=== PATIENT | male | born 1935 | race Asian ===

== ENCOUNTER 2018-05-25 18:24 | Emergency (ER) | payer OTHER ==
[~2018-05-25] VITALS: Ht 177.8 cm; Wt 92.5 kg
[2018-05-25 19:22] LABS: PLATELET COUNT 160 K/uL (142-355)
[2018-05-25 19:24] LABS: POTASSIUM 3.7 mmol/L (3.6-5.2)
[2018-05-25 21:10] VITALS: BP 135/71; TEMP 97.6
[2018-05-26] MEDS ORDERED: METO-837 PO (02:11)
[2018-05-26] MEDS ORDERED: MIRTAZAPINE7.5 MG PO (02:13)
[2018-05-26] MEDS ORDERED: TAMSULOSIN HYD0.4 MG PO (02:16)
[2018-05-26] MEDS ORDERED: BUDESONIDE0.25 MG/2 INH (02:18)
[2018-05-26] MEDS ORDERED: TRAMADOL HYDROC50 MG PO (02:21)
[2018-05-26] MEDS ORDERED: AMIODARONE HYD200 MG PO (02:32)
[2018-05-26] MEDS ORDERED: AMLODIPINE BESYLATE PO (02:34)
[2018-05-26] MEDS ORDERED: ASPIRIN 81 LOW81 MG PO (02:36)
[2018-05-26] MEDS ORDERED: FURO40TA93 PO (02:38)
[2018-05-26] MEDS ORDERED: MONTELUKAST SOD10 MG PO (02:40)
[2018-05-26] MEDS ORDERED: POTASSIUM CHLO20 ME1 PO (02:43)
[2018-05-26] MEDS ORDERED: ZOLOFT25 MG PO (02:45)
[2018-05-26] MEDS ORDERED: VITAMIN D1000 UNIT PO (02:48)
[2018-05-26] MEDS ORDERED: DEEP SEA0.65 % NAS (02:50)
[2018-05-26] MEDS ORDERED: BUDESONIDE0.5 MG/2 M INH (03:01)
== END 2018-05-25 21:10 | disposition other institution (70) ==
LOC: ED 18:24
PROVIDERS: Emergency Medicine
DX: F28 Other psychotic disorder not due to a substance or known physiological condition (principal); R00.0 Tachycardia, unspecified; Z04.6 Encounter for general psychiatric examination, requested by authority
CPT/HCPCS: 36415; 80053; 85027; 93005; 99285

== ENCOUNTER 2018-06-10 06:05 | Inpatient (IN) | payer OTHER ==
[~2018-06-10 06:05] MED LIST: AMIODARONE HYD200 MG PO; AMLODIPINE BESYLATE PO; ASPIRIN 81 LOW81 MG PO; BUDESONIDE0.25 MG/2 INH; BUDESONIDE0.5 MG/2 M INH; DEEP SEA0.65 % NAS; FURO40TA93 PO; METO-837 PO; MIRTAZAPINE7.5 MG PO; MONTELUKAST SOD10 MG PO; POTASSIUM CHLO20 ME1 PO; TAMSULOSIN HYD0.4 MG PO; TRAMADOL HYDROC50 MG PO; VITAMIN D1000 UNIT PO; ZOLOFT25 MG PO
[2018-06-10] MEDS ORDERED: AMANTADINE100 MG PO (17:12)
[2018-06-10] MEDS ORDERED: ESCI10TA PO (17:13)
[2018-06-10] MEDS ORDERED: RISP0.25 PO (17:13)
[2018-06-10] MEDS ORDERED: DONE5TAB PO (17:13)
== END 2018-06-10 11:50 | disposition expired | DRG 296 ==
LOC: ICU 06:05
PROVIDERS: ADMIT Psychiatry & Neurology Psychiatry
DX: I46.9 Cardiac arrest, cause unspecified (principal); E43 Unspecified severe protein-calorie malnutrition; F01.51 Vascular dementia, unspecified severity, with behavioral disturbance; I48.91 Unspecified atrial fibrillation; N40.0 Benign prostatic hyperplasia without lower urinary tract symptoms; Z95.0 Presence of cardiac pacemaker; I10 Essential (primary) hypertension; F43.10 Post-traumatic stress disorder, unspecified; I69.818 Other symptoms and signs involving cognitive functions following other cerebrovascular disease; I49.5 Sick sinus syndrome; E87.6 Hypokalemia; I69.391 Dysphagia following cerebral infarction; R13.19 Other dysphagia
CPT/HCPCS: 31500; 92950; J0171; J3490